=== PATIENT | female | born 1965 | race Caucasian/White ===

== ENCOUNTER 2017-11-26 15:58 | Inpatient (IN) ==
--- NOTE | 2017-11-26 18:41 | Emergency Department Note ---
Disposition Clinical Impression: HCAP (healthcare-associated pneumonia), Hypokalemia Disposition: Admitted As Inpatient Condition: Good General Adult HPI - General Chief complaint: ED Fever Stated complaint: "fever,n/v" Time Seen by Provider: 11/26/17 18:27 - History of Present Illness Pain Scale: 5 - Related Data Home Medications Medication Instructions Recorded Confirmed Exenatide Microspheres [Bydureon 2 mg SQ MO 08/22/17 08/22/17 Pen] Lisinopril [Zestril] 5 mg PO DAILY 08/22/17 08/22/17 Metformin HCl [Glucophage] 1,000 mg PO BID 08/22/17 08/22/17 Oxybutynin Chloride [Ditropan Xl] 10 mg PO DAILY 08/22/17 08/22/17 Topiramate 50 mg PO BID 08/22/17 08/22/17 Previous Rx's Medication Instructions Recorded HYDROcodone/Acet 5/325 mg [[place] 1 tab PO Q4H PRN 5 Days #15 tab 08/22/17 5-325 mg] Allergies Allergy/AdvReac Type Severity Reaction Status Date / Time acetaminophen AdvReac Gastrointestinal Verified 11/26/17 20:44 [From Tylenol-Codeine] Upset codeine AdvReac Gastrointestinal Verified 11/26/17 20:44 [From Tylenol-Codeine] Upset Penicillins AdvReac Gastrointestinal Verified 11/26/17 20:44 Upset Past Medical History - Past Medical History Psychiatric history: Reports: no psych history - Social History Smoking Status: Never smoker Alcohol use: Reports: none Drug use: Reports: none Course Vital Signs Temperature 99.9 F H 11/26/17 16:00 Pulse Rate 104 11/26/17 16:00 Respiratory Rate 18 11/26/17 16:00 Blood Pressure 129/83 11/26/17 16:00 O2 Sat by Pulse Oximetry 97 11/26/17 16:00 Temperature 99.9 F H 11/26/17 16:00 Pulse Rate 104 11/26/17 16:00 Respiratory Rate 18 11/26/17 16:00 Blood Pressure 129/83 11/26/17 16:00 O2 Sat by Pulse Oximetry 97 11/26/17 16:00 Oxygen Delivery Oxygen Delivery Room Air Medical Decision Making - Lab Data Result diagrams: 11/26/17 19:10 11/26/17 19:10 Lab Results 11/26/17 11/26/17 11/26/17 Range/Units 19:10 19:10 19:27 WBC 14.7 H (4.3-11.1) K/mcL RBC 4.19 (3.82-4.97) M/mcL Hgb 11.6 (11.5-15.4) g/dL Hct 34.8 L (35.3-44.9) % MCV 83.1 (83.0-100.0) fL MCH 27.7 L (28.0-33.3) pg MCHC 33.3 (31.6-35.5) g/dL RDW 13.3 (11.5-14.5) % Plt Count 195 (140-400) K/mcL MPV 10.4 (9.4-12.4) fL Immature Gran % 0.8 (0-4) % Seg Neutrophils % 84.9 % Lymphocytes % 8.2 % Monocytes % 5.9 % Eosinophils % 0.1 % Basophils % 0.1 % Neutrophils # 12.5 H (1.6-8.9) K/mcL Lymphocytes # 1.2 (0.6-4.6) K/mcL Monocytes # 0.9 (0.0-1.3) K/mcL Eosinophils # 0.0 (0.0-0.6) K/mcL Basophils # 0.0 (0.0-0.2) K/mcL Sodium 130 L (136-145) mEq/L Potassium 2.9 L (3.5-5.1) mEq/L Chloride 95 L (98-107) mEq/L Carbon Dioxide 23 (23-29) mEq/L BUN 11 (6-20) mg/dL Creatinine 0.81 (0.60-1.20) mg/dL Est GFR ( Amer) > 60 (> 60) Est GFR (Non-Af Amer) > 60 (> 60) BUN/Creatinine Ratio 14 (6-26) Glucose 287 H (70-105) mg/dL Calculated Osmolality 280 (280-300) Calcium 8.6 (8.6-10.3) mg/dL Total Bilirubin 0.4 (0.3-1.0) mg/dL AST 21 (13-39) Units/L ALT 21 (7-52) Units/L Alkaline Phosphatase 67 (34-104) Units/L Serum Total Protein 8.0 (6.4-8.9) g/dL Albumin 3.5 (3.5-5.7) g/dL Globulin 4.5 H (2.4-3.5) g/dL Albumin/Globulin Ratio 0.8 L (1.1-2.2) Lipase 16 (11-82) Units/L Urine Color Yellow (Yellow) Urine Clarity Cloudy A (Clear) Urine pH 5.5 (5.0-8.0) pH Units Ur Specific [place] > 1.030 H (1.010-1.025) Urine Protein >=300 H (Neg-Trace) mg/dL Urine Glucose (UA) >=1000 H (Normal) mg/dL Urine Ketones Trace H (Negative) mg/dL Urine Blood Moderate H (Negative) Urine Nitrite Negative (Negative) Urine Bilirubin Small H (Negative) Urine Urobilinogen Normal (Normal) mg/dL Ur Leukocyte Esterase Negative (Negative) Urine Microscopic RBC 0-3 (0-3) per hpf Urine Microscopic WBC 5-15 H (0-3) per hpf Ur Squamous Epith Cells Moderate H (None-Few) per lpf Urine Bacteria Many H (None-Few) per hpf Granular Casts Few H (None Seen) per lpf Ur Culture Indicated? NO (NO) Attestation Statement - Attestation Attestation: Resident Attestation: I examined this patient and my medical decision making was reviewed with the Resident Physician. I agree with the documented findings, disposition and treatment plan as described except to the extent set forth below. We independently had [id number] contact with the patient. Patient presents today for evaluation of fever, nausea, chills, body aches. Patient has had a cholecystectomy approximately 3 weeks ago where she stayed approximately 3 nights secondary to them deciding whether they wanted to take it out or not based off her overall symptoms. The patient does not have any specific focal abdominal tenderness. The patient does have a cough. Patient will be checked for infection in both the lungs abdomen and urine. No acute distress, awake alert and oriented 3, heart rate regular rhythm, lungs with rhonchi at the bases bilaterally, no significant lower extremity pitting edema CT scan does not show any intra-abdominal pathology, chest x-ray shows significant pneumonia to the left side, urinalysis without sign of infection. Patient has had greater than 2 days in the hospital within the last 3 months. HCAP coverage. Patient will require admission for IV antibiotics. Blood culture has been sent. Please see resident note for further details and disposition.
[2017-11-26] MEDS ORDERED: 0.9 % Sodium Chloride 1,000 ML IVC ONE (18:43)
[2017-11-26] MEDS ORDERED: Ondansetron 4 MG/2 ML VIAL IVP ONE (18:43)
--- NOTE | 2017-11-26 18:52 | Emergency Department Note ---
Disposition Clinical Impression: HCAP (healthcare-associated pneumonia) Fever Qualifiers: Fever type: unspecified Qualified Code(s): R50.9 - Fever, unspecified Disposition: Admitted As Inpatient Condition: Fair Referrals: Angelia Crawford CNP [Primary Care Provider] - Forms: ED Satisfaction Letter General Adult HPI - General Chief complaint: ED Fever Stated complaint: "fever,n/v" Time Seen by Provider: 11/26/17 18:27 Source: patient, family Mode of arrival: ambulatory Limitations: no limitations Nursing Notes Reviewed: Yes Vital Signs Reviewed: Yes - History of Present Illness HPI Narrative: 52-year-old female with significant past medical history of diabetes currently on metformin presenting to the emergency department with chief complaint of cough, fever and overall not feeling well. Patient states for the past 5-7 days she has not been feeling well. Went to an outside facility where they did a urine analysis and some lab work and sent her home. They diagnosed her with a viral upper respiratory infection. Patient states she did have a cholecystectomy approximately 3-4 weeks ago at an outside facility. At that time she stayed in the hospital for approximately 3 days. Patient states she had multiple episodes of nonbloody nonbilious vomiting a few days ago but that has now resolved. Now only having nausea. Denies any chest pain. Denies any history of asthma or COPD. Denies any other sick contacts. Pain Scale: 5 - Related Data Home Medications Medication Instructions Recorded Confirmed Exenatide Microspheres [Bydureon 2 mg SQ MO 08/22/17 08/22/17 Pen] Lisinopril [Zestril] 5 mg PO DAILY 08/22/17 08/22/17 Metformin HCl [Glucophage] 1,000 mg PO BID 08/22/17 08/22/17 Oxybutynin Chloride [Ditropan Xl] 10 mg PO DAILY 08/22/17 08/22/17 Topiramate 50 mg PO BID 08/22/17 08/22/17 Previous Rx's Medication Instructions Recorded HYDROcodone/Acet 5/325 mg [[place] 1 tab PO Q4H PRN 5 Days #15 tab 08/22/17 5-325 mg] Allergies Allergy/AdvReac Type Severity Reaction Status Date / Time acetaminophen AdvReac Gastrointestinal Verified 11/26/17 20:44 [From Tylenol-Codeine] Upset codeine AdvReac Gastrointestinal Verified 11/26/17 20:44 [From Tylenol-Codeine] Upset Penicillins AdvReac Gastrointestinal Verified 11/26/17 20:44 Upset All systems ED: reviewed and negative except as stated. Constitutional: Reports: fever, chills Eyes: Reports: as per HPI ENT ED: Reports: as per HPI Cardiovascular: Denies: chest pain, palpitations Respiratory: Reports: cough, dyspnea. Denies: hemoptysis, stridor Gastrointestinal: Reports: nausea, vomiting. Denies: abdominal pain Genitourinary: Reports: as per HPI Musculoskeletal: Reports: as per HPI Integumentary: Reports: as per HPI Neurological: Denies: numbness, paresthesias Psychiatric: Reports: as per HPI Endocrine: Reports: as per HPI Hematological/Lymphatic: Reports: as per HPI Allergic/Immunologic: Reports: as per HPI Past Medical History - Past Medical History Attestation: Yes The following information was validated with the patient. Psychiatric history: Reports: no psych history - Social History Smoking Status: Never smoker Alcohol use: Reports: none Drug use: Reports: none Physical Exam - General Limitations: no limitations General appearance: alert, in no apparent distress - Head Head exam: atraumatic, normocephalic, normal inspection - Eye Eye exam: Present: normal appearance. Absent: scleral icterus, conjunctival injection - ENT ENT exam: mucous membranes dry - Neck Neck exam: Present: normal inspection, full ROM. Absent: tenderness, meningismus - Chest Chest inspection: Present: normal inspection, symmetric chest wall rise. Absent : tenderness, rash - Respiratory Respiratory exam: Present: other (Coarse breath sounds throughout). Absent: respiratory distress, stridor - Cardiovascular Cardiovascular exam: Present: normal rhythm, tachycardia, normal heart sounds - Abdominal Exam Abdominal exam: Present: soft, Non-Tender, other (3 well healing surgical incision sites noted to the right side of the abdomen). Absent: distention, guarding, rebound - Extremities Exam Extremities exam: Present: normal inspection, full ROM - Neurological Exam Neurological exam: Present: alert, oriented X3 - Psychiatric Psychiatric exam: Present: normal affect, normal mood - Skin Skin exam: Present: warm Course Course Narrative: 52-year-old female presenting with cough, fever and overall not feeling well. Patient had cholecystectomy 3-4 weeks ago. Patient's physical exam shows a soft abdomen and coarse breath sounds throughout. She is mildly tachycardic in the low 100s. Otherwise hemodynamically stable. She is alert and oriented 3. At this time will work her up with concern for sepsis. We will obtain basic laboratory analysis, chest x-ray and a CT of the abdomen and pelvis. Disposition pending results. Patient agrees with this plan - Reevaluation(s) Reevaluation #1: Patient's laboratory analysis shows leukocytosis at 14.7 and hypokalemia at 2.9. We will replete her with [address] of abdomen and pelvis does not show any acute abnormality. Chest x-ray does show large left sided pneumonia. Due to patient's recent hospitalization for her cholecystectomy we will treat her as an age. Patient is allergic to penicillin. We will provide her with cefepime, Levaquin and vancomycin. Patient remains alert and oriented 3 in the room with stable vital signs. We will plan to admit her for further treatment. Patient agrees this plan. I spoke with the hospitalist infection prevention coordinator Dr. Balbuena who agrees to accept the patient at this time. Vital Signs Temperature 99.9 F H 11/26/17 16:00 Pulse Rate 104 11/26/17 16:00 Respiratory Rate 18 11/26/17 16:00 Blood Pressure 129/83 11/26/17 16:00 O2 Sat by Pulse Oximetry 97 11/26/17 16:00 Temperature 99.9 F H 11/26/17 16:00 Pulse Rate 104 11/26/17 16:00 Respiratory Rate 18 11/26/17 16:00 Blood Pressure 129/83 11/26/17 16:00 O2 Sat by Pulse Oximetry 97 11/26/17 16:00 Oxygen Delivery Oxygen Delivery Room Air Medical Decision Making - Lab Data Result diagrams: 11/26/17 19:10 11/26/17 19:10 Lab Results 11/26/17 11/26/17 11/26/17 Range/Units 19:10 19:10 19:27 WBC 14.7 H (4.3-11.1) K/mcL RBC 4.19 (3.82-4.97) M/mcL Hgb 11.6 (11.5-15.4) g/dL Hct 34.8 L (35.3-44.9) % MCV 83.1 (83.0-100.0) fL MCH 27.7 L (28.0-33.3) pg MCHC 33.3 (31.6-35.5) g/dL RDW 13.3 (11.5-14.5) % Plt Count 195 (140-400) K/mcL MPV 10.4 (9.4-12.4) fL Immature Gran % 0.8 (0-4) % Seg Neutrophils % 84.9 % Lymphocytes % 8.2 % Monocytes % 5.9 % Eosinophils % 0.1 % Basophils % 0.1 % Neutrophils # 12.5 H (1.6-8.9) K/mcL Lymphocytes # 1.2 (0.6-4.6) K/mcL Monocytes # 0.9 (0.0-1.3) K/mcL Eosinophils # 0.0 (0.0-0.6) K/mcL Basophils # 0.0 (0.0-0.2) K/mcL Sodium 130 L (136-145) mEq/L Potassium 2.9 L (3.5-5.1) mEq/L Chloride 95 L (98-107) mEq/L Carbon Dioxide 23 (23-29) mEq/L BUN 11 (6-20) mg/dL Creatinine 0.81 (0.60-1.20) mg/dL Est GFR ( Amer) > 60 (> 60) Est GFR (Non-Af Amer) > 60 (> 60) BUN/Creatinine Ratio 14 (6-26) Glucose 287 H (70-105) mg/dL Calculated Osmolality 280 (280-300) Calcium 8.6 (8.6-10.3) mg/dL Total Bilirubin 0.4 (0.3-1.0) mg/dL AST 21 (13-39) Units/L ALT 21 (7-52) Units/L Alkaline Phosphatase 67 (34-104) Units/L Serum Total Protein 8.0 (6.4-8.9) g/dL Albumin 3.5 (3.5-5.7) g/dL Globulin 4.5 H (2.4-3.5) g/dL Albumin/Globulin Ratio 0.8 L (1.1-2.2) Lipase 16 (11-82) Units/L Urine Color Yellow (Yellow) Urine Clarity Cloudy A (Clear) Urine pH 5.5 (5.0-8.0) pH Units Ur Specific [place] > 1.030 H (1.010-1.025) Urine Protein >=300 H (Neg-Trace) mg/dL Urine Glucose (UA) >=1000 H (Normal) mg/dL Urine Ketones Trace H (Negative) mg/dL Urine Blood Moderate H (Negative) Urine Nitrite Negative (Negative) Urine Bilirubin Small H (Negative) Urine Urobilinogen Normal (Normal) mg/dL Ur Leukocyte Esterase Negative (Negative) Urine Microscopic RBC 0-3 (0-3) per hpf Urine Microscopic WBC 5-15 H (0-3) per hpf Ur Squamous Epith Cells Moderate H (None-Few) per lpf Urine Bacteria Many H (None-Few) per hpf Granular Casts Few H (None Seen) per lpf Ur Culture Indicated? NO (NO)
[2017-11-26 19:46] LABS: Basophils % 0.1 %; Eosinophils % 0.1 %; Hematocrit 34.8 % (35.3-44.9); Hemoglobin 11.6 g/dL (11.5-15.4); Immature Granulocytes % 0.8 % (0-4); Lymphocytes # 1.2 K/mcL (0.6-4.6); Lymphocytes % 8.2 %; Mean Corpuscular HGB Conc 33.3 g/dL (31.6-35.5); Mean Corpuscular Hemoglobin 27.7 pg (28.0-33.3); Mean Corpuscular Volume 83.1 fL (83.0-100.0); Mean Platelet Volume 10.4 fL (9.4-12.4); Monocytes # 0.9 K/mcL (0.0-1.3); Monocytes % 5.9 %; Neutrophils # 12.5 K/mcL (1.6-8.9); Platelet Count 195 K/mcL (140-400); Red Blood Count 4.19 M/mcL (3.82-4.97); Red Cell Distribution Width 13.3 % (11.5-14.5); Segmented Neutrophils % 84.9 %
[2017-11-26 19:49] LABS: Bilirubin,Urine Small (Negative); Blood,Urine Moderate (Negative); Clarity,Urine Cloudy (Clear); Color,Urine Yellow (Yellow); Glucose,Urine (UA) >=1000 mg/dL (Normal); Ketones,Urine Trace mg/dL (Negative); Leukocyte Esterase,Urine Negative (Negative); Nitrite,Urine Negative (Negative); PH,Urine 5.5 pH Units (5.0-8.0); Protein,Urine >=300 mg/dL (Neg-Trace); Specific Gravity,Urine > 1.030 (1.010-1.025); Urobilinogen,Urine Normal (Normal)
[2017-11-26 20:04] LABS: Granular Casts,Urine Few per lpf (None Seen)
[2017-11-26 20:05] LABS: Bacteria,Urine Many per hpf (None-Few); RBC,Urine 0-3 per hpf (0-3); Squamous Epithelial Cell,Urine Moderate per lpf (None-Few)
[2017-11-26 20:06] LABS: Alanine Aminotransferase 21 Units/L (7-52); Albumin 3.5 g/dL (3.5-5.7); Albumin/Globulin Ratio 0.8 (1.1-2.2); Alkaline Phosphatase 67 Units/L (34-104); Aspartate Amino Transferase 21 Units/L (13-39); BUN/Creatinine Ratio 14 (6-26); Bilirubin,Total 0.4 mg/dL (0.3-1.0); Blood Urea Nitrogen 11 mg/dL (6-20); Calcium 8.6 mg/dL (8.6-10.3); Carbon Dioxide 23 mEq/L (23-29); Chloride 95 mEq/L (98-107); Globulin 4.5 g/dL (2.4-3.5); Glucose 287 mg/dL (70-105); Lipase 16 Units/L (11-82); Osmolality,Calculated 280 (280-300); Potassium 2.9 mEq/L (3.5-5.1); Sodium 130 mEq/L (136-145); eGFR For Non-African Americans > 60 (> 60)
[2017-11-26] MEDS ORDERED: Potassium Chloride Elixir 20 MEQ/15 ML UDC PO ONE (20:08)
[2017-11-26] MEDS ORDERED: Vancomycin 1,750 MG in 0.9 % Sodium Chloride 250 ML IVPB ONE (20:37)
[2017-11-26] MEDS ORDERED: Levofloxacin 750 MG/150 ML 750 MG/150 ML BAG IVPB ONE (20:37)
[2017-11-26] MEDS ORDERED: Piperacillin/Tazobactam 3.375 GM in 0.9 % Sodium Chloride Mini Bag 100 ML IVPB ONE (20:37)
[2017-11-26] MEDS ORDERED: Azithromycin 500 MG in D5% in Water 250 ML IVPB ONE (20:39)
[2017-11-26] MEDS ORDERED: Cefepime HCl 2,000 MG in 0.9 % Sodium Chloride Mini Bag 100 ML IVPB STA (20:40)
[2017-11-26] MEDS ORDERED: Dextrose Gel 15 GM/37.5 ML TUBE PO PRN ×2 (21:03)
[2017-11-26] MEDS: Topiramate 25 MG TABLET PO SCH (22:00)
[2017-11-26] MEDS ORDERED: Ibuprofen 600 MG TABLET PO PRN (22:20)
--- NOTE | 2017-11-26 22:30 | Internal Med History&Physical ---
Date of Encounter: 11/26/17 Time of Encounter: 22:25 Internal Medicine - H&P: HPI Chief complaint: cough Admitted From: Home Plans for Post Hospital Care: Home History of present illness: Samara Dorsey is a 52 year old woman with diabetes who was admitted to [facility] for 3 days about 3 weeks ago where she underwent a laparoscopic cholecystectomy without complications. She presents to our ER now with the complaint of cough, fever and generalized malaise for the past week. She says she was seen at [place] 3 days ago and was told she had dehydration and URI. She has not improved since then, today now feeling feverish and having chills. She states that her cough is increasingly more productive and bothersome with associated chest discomfort. She has also started to feel nauseated, having a few episodes on non-bilious vomiting. She states that no one else is sick at home. She denies sore throat, inner ear pain/tingling, rhinorrhea. On arrival to the ER she was clinically stable and breathing well on room air. Review of her vitals show a TMax of 100.6F. She was also tachycardic at 104 but never hypotensive. Lactate obtained was wnl however WBC was elevated at 14.7. Other remarkable labs include Na 130, K 2.9. CXR reviewed independently by me shows extensive left lung airspace opacification consistent with pneumonia. Blood cultures were obtained and she was given vancomycin and cefepime given her recent healthcare contact. She is now admitted for further observation. Past Med Surg Social Fam HX - Past Medical History Medical history: diabetes, hyperlipidemia Psychiatric history: no psych history - Past Surgical History Surgical History: , cholecystectomy - Social History Smoking Status: Never smoker Smokeless Tobacco Status: No Alcohol use: none Drug use: none Internal Medicine - H&P: Meds Exenatide Microspheres [Bydureon Pen] 2 mg SQ MO 08/22/17 [History] HYDROcodone/Acet 5/325 mg [[place] 5-325 mg] 1 tab PO Q4H PRN 5 Days #15 tab 08/22 [Rx] Lisinopril [Zestril] 5 mg PO DAILY 08/22/17 [History] Metformin HCl [Glucophage] 1,000 mg PO BID 08/22/17 [History] Oxybutynin Chloride [Ditropan Xl] 10 mg PO DAILY 08/22/17 [History] Topiramate 50 mg PO BID 08/22/17 [History] 3 Allergy/AdvReac Type Severity Reaction Status Date / Time acetaminophen AdvReac Gastrointestinal Verified 11/26/17 20:44 [From Tylenol-Codeine] Upset codeine AdvReac Gastrointestinal Verified 11/26/17 20:44 [From Tylenol-Codeine] Upset Penicillins AdvReac Gastrointestinal Verified 11/26/17 20:44 Upset All Systems PM: A 10-system review of systems was performed and is negative for pertinent findings except as documented above in the HPI. - Constitutional Vitals: Temp Pulse Resp BP Pulse Ox 100.6 F H 94 15 123/73 97 11/26/17 21:29 11/26/17 21:29 11/26/17 21:29 11/26/17 21:29 11/26/17 21:29 Exam: Vitals: Reviewed General: Obese, NAD Skin: Warm and supple HEENT: Moist mucous membranes. No conjunctivae pallor. Poor dentition. Neck: No lymphadenopathy. No JVD. No carotid bruits. No palpable thyroid. Chest: Coughs with deep breaths. Diminished breath sounds with fine rales in the lower left lung field. Heart: Normal S1 & S2; rhythmic. No rubs or murmurs. Abdomen: Non-distended, soft and non-tender to palpation. No peritoneal reaction. Extremities: No clubbing, cyanosis or edema. No calf tenderness. Normal distal pulses. Neurological: Awake, alert and oriented to person, place and time. No focal deficits. Psych: Affect appropriate. Internal Med - H&P Results - Labs CBC & Chem 7: 11/26/17 19:10 11/26/17 19:10 - Assessment and plan (1) Sepsis Current Visit: Yes Status: Acute Assessment and plan: Secondary to pneumonia as evidenced by fever, tachycardia and leukocytosis with positive respiratory symptoms and a lobar consolidation on x-ray. Although her CURB/PSI numbers are not elevated, being a diabetic with recent hospitalization and extensive disease on x-ray warrants inpatient treatment for now. Will check lactate level. Fluid resuscitation. Obtain cultures and abx as directed below. Qualifiers: Sepsis type: sepsis due to unspecified organism Qualified Code(s): A41.9 - Sepsis, unspecified organism (2) HCAP (healthcare-associated pneumonia) Current Visit: Yes Status: Acute Assessment and plan: Based on her 3 day hospitalization 3 weeks ago part of which entailed intubation for surgery. This prompts the need for broad spectrum antimicrobials targeting MDR organisms. The presence of GI symptoms and hyponatremia in addition to hospital stay gives concern for Legionella therefore this needs to be ruled out. Thus will discontinue cefepime/piptazo as they do not aequately cover this organism or have atypical coverage. Will start levofloxacin 750mg as they have the same degree of coverage of those agents in addition to covering atypicals and Legionella. Continue vancomycin for now. Will obtain MRSA nasal swab; if negative it can be discontinued. Urine Strep Ag and sputum culture also to be collected. Rule out underlying influenza with Ag swab. F/u blood cultures. (3) Electrolyte and fluid disorder Current Visit: Yes Status: Acute Assessment and plan: As evidenced by hyponatremia and hypokalemia. Possibly associated with the GI losses she has been reporting coupled with poor oral intake. 40mEq of KCL PO has been given. Will continue with KCL in IV NS to run over the next 16 hours. Goal K of 4.0. Check Mg. (4) Diabetes Current Visit: Yes Status: Chronic Assessment and plan: Will place on insulin sliding scale for now. Qualifiers: Diabetes mellitus type: type 2 Diabetes mellitus intermodal dispatcher insulin use: without [facility] use Diabetes mellitus complication status: with unspecified complications Qualified Code(s): E11.8 - Type 2 diabetes mellitus with unspecified complications (5) DVT prophylaxis Current Visit: Yes Status: Acute Assessment and plan: SubQ heparin indicated. - Time Spent With Patient Total time spent is greater than 50% in coordination of care (as documented) at patient's floor/unit and/or counseling patient: Greater than 35 minutes
[2017-11-26] MEDS: *HR* Heparin 5,000 UNIT/ML VIAL SQ SCH (23:14)
[2017-11-26] MEDS: *HR* HYDROcodone/Acet 5/325 mg TABLET PO PRN (23:46)
[2017-11-26] MEDS: 0.9 % Sodium Chloride w KCl 40 MEQ/1,000 ML MLS IVC SCH (23:59)
[2017-11-27 06:09] LABS: Basophils % 0.2 %; Eosinophils % 0.2 %; Hematocrit 32.1 % (35.3-44.9); Hemoglobin 10.6 g/dL (11.5-15.4); Immature Granulocytes % 0.8 % (0-4); Lymphocytes # 1.4 K/mcL (0.6-4.6); Lymphocytes % 10.3 %; Mean Corpuscular Hemoglobin 27.8 pg (28.0-33.3); Mean Corpuscular Volume 84.3 fL (83.0-100.0); Mean Platelet Volume 10.6 fL (9.4-12.4); Monocytes # 0.9 K/mcL (0.0-1.3); Neutrophils # 10.7 K/mcL (1.6-8.9); Platelet Count 163 K/mcL (140-400); Red Blood Count 3.81 M/mcL (3.82-4.97); Red Cell Distribution Width 13.7 % (11.5-14.5); Segmented Neutrophils % 81.5 %
[2017-11-27 06:27] LABS: BUN/Creatinine Ratio 15 (6-26); Blood Urea Nitrogen 11 mg/dL (6-20); Calcium 7.8 mg/dL (8.6-10.3); Carbon Dioxide 20 mEq/L (23-29); Chloride 102 mEq/L (98-107); Glucose 286 mg/dL (70-105); Osmolality,Calculated 282 (280-300); Potassium 3.6 mEq/L (3.5-5.1); Sodium 131 mEq/L (136-145); eGFR For Non-African Americans > 60 (> 60)
[2017-11-27] MEDS ORDERED: Aminoglycoside Consult 1 EACH MC ONE (07:18)
[2017-11-27] MEDS: Topiramate 25 MG TABLET PO SCH ×2 (08:46→20:44)
[2017-11-27] MEDS: Levofloxacin 750 MG/150 ML 750 MG/150 ML BAG IVPB SCH (08:49)
[2017-11-27] MEDS: Insulin LISPRO 300 UNITS/3 ML VIAL SQ SCH ×4 (08:54→20:44)
[2017-11-27] MEDS: *HR* Heparin 5,000 UNIT/ML VIAL SQ SCH ×2 (08:56→17:06)
[2017-11-27] MEDS ORDERED: Vancomycin 1,750 MG in 0.9 % Sodium Chloride 250 ML IVPB SCH (09:00)
[2017-11-27] MEDS: 0.9 % Sodium Chloride w KCl 40 MEQ/1,000 ML MLS IVC SCH (09:23)
[2017-11-27 10:45] LABS: Magnesium 1.4 mg/dL (1.6-2.6)
--- NOTE | 2017-11-27 14:45 | Internal Med Progress Note ---
<Cesilia Blanco - Last Filed: 11/27/17 15:58> Hospitalist Progress Note - Encounter Date of Encounter: 11/27/17 Time of Encounter: 10:32 - Subjective Interval History: Samara Dorsey is a 52 YOF with history of DM and a recent 3 day admission to [place] 3 weeks ago, s/p cholecystectomy. She presented to [place] within the past week complaining of cough, fever, and generalized weakness and was diagnosed with a URI and dehydration. Her symptoms continued to worsen with continued fever, chills, and a couple episodes of non-bilious vomiting. CXR on admission showed extensive left perihilar opacificaion. She tested positive for Legionella urine antigen and was stated on Levaquin and Vanc. Patient states that her breathing is improved today. She denies any chest pain, palpitations, lightheadedness, or dizziness, fever, or chills. She admits to a non-productive cough and decreased appetite. - Exam Vitals: Temp Pulse Resp BP Pulse Ox 98.5 F 89 15 106/69 95 11/27/17 10:42 11/27/17 10:42 11/27/17 10:42 11/27/17 10:42 11/27/17 10:42 Exam: Gen: Lying comfortably in bed, NAD Skin: Warm and supple Chest: Diminished breath sounds with fine rales in the lower left lung field. Clear breath sounds in the right lung ellison. Heart: RRR. S1 and S2 normal, no murmurs Abdomen: Non-distended, soft and non-tender to palpation. Extremities: No clubbing, cyanosis or edema. Neurological: Awake, alert and oriented to person, place and time. No focal deficits. Psych: Alert and oriented, appears uneducated with difficulty understanding - Assessment and Plan (1) HCAP (healthcare-associated pneumonia) Current Visit: Yes Status: Acute Assessment and Plan: Due to patients recent hospitalization, likely hosptial acquired pnemonia. Patient had GI symptoms, hypokalemia (2.9) and hyponatremia (130) on presentation, improved today. Urine Antigen positive or Legionella MRSA nasal swab negative Blood cultures pending Continue Levaquin Discontinued Vancomycin due to negative MRSA swab Hyponatremia and hypokalemia resolved, will continue to monitor (2) Diabetes Current Visit: Yes Status: Chronic Assessment and Plan: A1C 7.7. on 08/18/17 Holding home Metformin Glucose 240s-290s today Continue low dose SSI Added 10u Levemir QHS Will continue to monitor (3) Hyponatremia Current Visit: Yes Status: Acute Assessment and Plan: 130 on admission, likely secondary to Legionella PNA Na 131 today Patient asymptomatic Will continue to monitor (4) Hypokalemia Current Visit: Yes Status: Resolved Assessment and Plan: 2.9 on admission, now 3.6 after KCL 40mEq x2 (5) Hypertension Current Visit: Yes Status: Chronic Assessment and Plan: Chronic. Stable. Continue home Lisinopril DVT Prophylaxis: SQ Heparin - Time Spent with Patient Total time spent is greater than 50% in coordination of care (as documented) at patient's floor/unit and/or counseling patient: 25 - 35 minutes Plan of Care Discussed with: patient Internal Medicine: Result - Labs CBC & Chem 7: 11/27/17 05:44 11/27/17 05:44 Labs: Short CBC 11/27/17 Range/Units 05:44 WBC 13.2 H (4.3-11.1) K/mcL Hgb 10.6 L (11.5-15.4) g/dL Hct 32.1 L (35.3-44.9) % Plt Count 163 (140-400) K/mcL Neutrophils # 10.7 H (1.6-8.9) K/mcL BMP 11/27/17 05:44 Sodium 131 L Potassium 3.6 Chloride 102 Carbon Dioxide 20 L BUN 11 Creatinine 0.74 Glucose 286 H Calcium 7.8 L Consult Discharge Plan - Plan Referrals: Angelia Crawford, HEALTH PROGRAM SPECIALIST [Primary Care Provider] - <Sheila Herdeia - Last Filed: 11/27/17 16:41> Hospitalist Progress Note - Encounter Date of Encounter: 11/27/17 - Exam Vitals: Temp Pulse Resp BP Pulse Ox 98.9 F 82 16 121/73 96 11/27/17 14:52 11/27/17 14:52 11/27/17 14:52 11/27/17 14:52 11/27/17 14:52 - Assessment and Plan (1) HCAP (healthcare-associated pneumonia) Current Visit: Yes Status: Acute (2) Electrolyte and fluid disorder Current Visit: Yes Status: Acute (3) Sepsis Current Visit: Yes Status: Acute (4) Diabetes Current Visit: Yes Status: Chronic (5) DVT prophylaxis Current Visit: Yes Status: Acute - Time Spent with Patient Total time spent is greater than 50% in coordination of care (as documented) at patient's floor/unit and/or counseling patient: Internal Medicine: Result - Labs CBC & Chem 7: 11/27/17 05:44 11/27/17 05:44 Labs: Short CBC 11/27/17 Range/Units 05:44 WBC 13.2 H (4.3-11.1) K/mcL Hgb 10.6 L (11.5-15.4) g/dL Hct 32.1 L (35.3-44.9) % Plt Count 163 (140-400) K/mcL Neutrophils # 10.7 H (1.6-8.9) K/mcL BMP 11/27/17 05:44 Sodium 131 L Potassium 3.6 Chloride 102 Carbon Dioxide 20 L BUN 11 Creatinine 0.74 Glucose 286 H Calcium 7.8 L - Attending Attestation I have seen and examined this pt independently. I have discussed with resident physician Dr Blanco regarding the management plan. Agree with the documentation. <Cesilia Blanco - Last Filed: 11/27/17 15:58> (2) Diabetes Qualifiers: Diabetes mellitus type: type 2 Diabetes mellitus field ring assembler insulin use: without field ring assembler use Diabetes mellitus complication status: with unspecified complications Qualified Code(s): E11.8 - Type 2 diabetes mellitus with unspecified complications <Sheila Heredia - Last Filed: 11/27/17 16:41> (3) Sepsis Qualifiers: Sepsis type: sepsis due to unspecified organism Qualified Code(s): A41.9 - Sepsis, unspecified organism (4) Diabetes Qualifiers: Diabetes mellitus type: type 2 Diabetes mellitus field ring assembler insulin use: without halfway use Diabetes mellitus complication status: with unspecified complications Qualified Code(s): E11.8 - Type 2 diabetes mellitus with unspecified complications
[2017-11-27] MEDS: Insulin DETEMIR 100 UNIT/ML X5UNITS SQ SCH (20:44)
[2017-11-28] MEDS: *HR* HYDROcodone/Acet 5/325 mg TABLET PO PRN ×3 (00:47→23:59)
[2017-11-28] MEDS: *HR* Heparin 5,000 UNIT/ML VIAL SQ SCH ×4 (00:48→23:59)
[2017-11-28 05:29] LABS: Basophils % 0.3 %; Eosinophils # 0.2 K/mcL (0.0-0.6); Hematocrit 31.7 % (35.3-44.9); Hemoglobin 10.2 g/dL (11.5-15.4); Immature Granulocytes % 1.1 % (0-4); Lymphocytes % 9.4 %; Mean Corpuscular HGB Conc 32.2 g/dL (31.6-35.5); Mean Corpuscular Hemoglobin 27.7 pg (28.0-33.3); Mean Corpuscular Volume 86.1 fL (83.0-100.0); Mean Platelet Volume 11.3 fL (9.4-12.4); Monocytes # 0.5 K/mcL (0.0-1.3); Monocytes % 4.7 %; Neutrophils # 8.9 K/mcL (1.6-8.9); Platelet Count 167 K/mcL (140-400); Red Blood Count 3.68 M/mcL (3.82-4.97); Red Cell Distribution Width 14.1 % (11.5-14.5); Segmented Neutrophils % 82.5 %
[2017-11-28 05:51] LABS: BUN/Creatinine Ratio 18 (6-26); Blood Urea Nitrogen 11 mg/dL (6-20); Calcium 8.6 mg/dL (8.6-10.3); Carbon Dioxide 17 mEq/L (23-29); Chloride 105 mEq/L (98-107); Glucose 156 mg/dL (70-105); Osmolality,Calculated 277 (280-300); Potassium 3.4 mEq/L (3.5-5.1); Sodium 132 mEq/L (136-145); eGFR For Non-African Americans > 60 (> 60)
[2017-11-28 08:20] LABS: Magnesium 1.6 mg/dL (1.6-2.6)
[2017-11-28] MEDS: Levofloxacin 750 MG/150 ML 750 MG/150 ML BAG IVPB SCH (08:20)
[2017-11-28] MEDS: Insulin LISPRO 300 UNITS/3 ML VIAL SQ SCH ×4 (08:21→21:38)
[2017-11-28] MEDS: Topiramate 25 MG TABLET PO SCH ×2 (08:21→21:37)
--- NOTE | 2017-11-28 11:59 | Internal Med Progress Note ---
<Cesilia Blanco - Last Filed: 11/28/17 13:44> Hospitalist Progress Note - Encounter Date of Encounter: 11/28/17 Time of Encounter: 09:17 - Subjective Interval History: Samara Dorsey is a 52 YOF with history of DM and a recent 3 day admission to [place] 3 weeks ago, s/p cholecystectomy. She presented to [place] within the past week complaining of cough, fever, and generalized weakness and was diagnosed with a URI and dehydration. Her symptoms continued to worsen with continued fever, chills, and a couple episodes of non-bilious vomiting. CXR on admission showed extensive left perihilar opacificaion. WBC was 14.7 on admission and she tested positive for Legionella urine antigen. Patient states that she continues to feel better with the exception of a mildly productive cough. She also states that overnight she felt hot and broke out in a sweat. Her appetite is slightly improved today. She denies any chest pain, palpitations, lightheadedness, or dizziness. - Exam Vitals: Temp Pulse Resp BP Pulse Ox 97.9 F 79 17 114/78 94 11/28/17 10:54 11/28/17 10:54 11/28/17 10:54 11/28/17 10:54 11/28/17 10:54 Exam: Gen: Lying comfortably in bed, NAD Skin: Warm and supple Chest: Diminished breath sounds with fine rales in the lower left lung field. Clear breath sounds in the right lung ellison. Heart: RRR. S1 and S2 normal, no murmurs Abdomen: Non-distended, soft and non-tender to palpation. Extremities: No clubbing, cyanosis or edema. Neurological: Awake, alert and oriented to person, place and time. No focal deficits. - Assessment and Plan (1) Legionella pneumonia Current Visit: Yes Status: Acute Assessment and Plan: Due to patients recent hospitalization, likely hosptial acquired pnemonia. Patient's breathing is improved, however she complains of a mildly productive cough and sweats overnight WBC 14.7 --> 10.8 today hypokalemia 2.9 --> 3.4 today hyponatremia 130 --> 132 today CXR -Extensive left perihilar airspace opacification most consistent with pneumonia. Urine Antigen positive or Legionella MRSA nasal swab negative Blood cultures pending Continue Levaquin (day 2) Encouraged mobilization Will transition to oral Levaquin tomorrow with possible discharge Patient will need follow up with PCP (2) Sepsis Current Visit: Yes Status: Resolved Assessment and Plan: Resolved. Likely secondary to HAP Presented with fever, tachycardia, and leukocytosis with respiratory symptoms and lobar consolidation on CXR Diabetic with recent hospitalization WBC 14.7 --> 10.8 today CXR - Extensive left perihilar airspace opacification most consistent with pneumonia. Lactic Acid 1.5 Vitals stable (3) Diabetes Current Visit: Yes Status: Chronic Assessment and Plan: A1C 7.7. on 08/18/17 Holding home Metformin Glucose 143 today Continue low dose SSI Continue 10u Levemir QHS Will continue to monitor (4) Hyponatremia Current Visit: Yes Status: Acute Assessment and Plan: 130 on admission, likely secondary to Legionella PNA Na 132 today Patient asymptomatic Will continue to monitor (5) Hypokalemia Current Visit: Yes Status: Resolved Assessment and Plan: 2.9 on admission, 3.4 today Will continue to monitor and replace PRN (6) Hypertension Current Visit: Yes Status: Chronic Assessment and Plan: Chronic. Stable. Continue home Lisinopril DVT Prophylaxis: SQ Heparin - Time Spent with Patient Total time spent is greater than 50% in coordination of care (as documented) at patient's floor/unit and/or counseling patient: less than 15 minutes Plan of Care Discussed with: patient Internal Medicine: Result - Labs CBC & Chem 7: 11/28/17 04:15 11/28/17 04:15 Labs: Short CBC 11/28/17 Range/Units 04:15 WBC 10.8 (4.3-11.1) K/mcL Hgb 10.2 L (11.5-15.4) g/dL Hct 31.7 L (35.3-44.9) % Plt Count 167 (140-400) K/mcL Neutrophils # 8.9 (1.6-8.9) K/mcL BMP 11/28/17 04:15 Sodium 132 L Potassium 3.4 L Chloride 105 Carbon Dioxide 17 L BUN 11 Creatinine 0.60 Glucose 156 H Calcium 8.6 Consult Discharge Plan - Plan Referrals: Angelia Crawford, TRAINING MGR [Primary Care Provider] - <Jie Hassan - Last Filed: 11/28/17 16:31> Hospitalist Progress Note - Encounter Date of Encounter: 11/28/17 - Exam Vitals: Temp Pulse Resp BP Pulse Ox 98.3 F 78 15 97/60 96 11/28/17 14:49 11/28/17 14:49 11/28/17 14:49 11/28/17 14:49 11/28/17 14:49 - Assessment and Plan (1) HCAP (healthcare-associated pneumonia) Current Visit: Yes Status: Acute (2) Electrolyte and fluid disorder Current Visit: Yes Status: Acute (3) Sepsis Current Visit: Yes Status: Resolved (4) Diabetes Current Visit: Yes Status: Chronic (5) DVT prophylaxis Current Visit: Yes Status: Acute - Time Spent with Patient Total time spent is greater than 50% in coordination of care (as documented) at patient's floor/unit and/or counseling patient: Internal Medicine: Result - Labs CBC & Chem 7: 11/28/17 04:15 11/28/17 04:15 Labs: Short CBC 11/28/17 Range/Units 04:15 WBC 10.8 (4.3-11.1) K/mcL Hgb 10.2 L (11.5-15.4) g/dL Hct 31.7 L (35.3-44.9) % Plt Count 167 (140-400) K/mcL Neutrophils # 8.9 (1.6-8.9) K/mcL BMP 11/28/17 04:15 Sodium 132 L Potassium 3.4 L Chloride 105 Carbon Dioxide 17 L BUN 11 Creatinine 0.60 Glucose 156 H Calcium 8.6 - Attending Attestation I examined this patient and my medical decision-making was reviewed with the Resident Physician. I agree with the documented findings, disposition and treatment plan as described except to the extent set forth below/addl details s below Ms Dorsey was admitted with sepsis 2/2 legionella pneumonia. Pt independently seen and examined Awake, cont cough with yellow sputum, denies sob, wheezing. Ambulating to bathroom and no sig dyspnea. Denies fevers, chills. gen- alert, awake,appears stated age cv- reg rate and rhythm, normal s1,s2, no murmurs appreciated lungs- ctabl, no wheezing, rhonchi or crackles, diminished left posterior breath sounds abd- soft, non tender, non distended, + bs neuro- AAOx3, CN grossly intact, no focal deficits Sepsis 2/2 pna, resolved Legionella pna- cont levaquin, bl cxs ngtd, encourage increased activity, o2 sats stable on room air Hyponatremia likely 2/2 legionella , Sodium level increased to 132, without cognitive deficits Hypokalemia- cont oral repletion, mag wnl <Cesilia Blanco - Last Filed: 11/28/17 13:44> (2) Sepsis Qualifiers: Sepsis type: sepsis due to unspecified organism Qualified Code(s): A41.9 - Sepsis, unspecified organism (3) Diabetes Qualifiers: Diabetes mellitus type: type 2 Diabetes mellitus jail insulin use: without jail use Diabetes mellitus complication status: with unspecified complications Qualified Code(s): E11.8 - Type 2 diabetes mellitus with unspecified complications <Jie Hassan M - Last Filed: 11/28/17 16:31> (3) Sepsis Qualifiers: Sepsis type: sepsis due to unspecified organism Qualified Code(s): A41.9 - Sepsis, unspecified organism (4) Diabetes Qualifiers: Diabetes mellitus type: type 2 Diabetes mellitus remote computer terminal operator insulin use: without remote computer terminal operator use Diabetes mellitus complication status: with unspecified complications Qualified Code(s): E11.8 - Type 2 diabetes mellitus with unspecified complications
[2017-11-28] MEDS: Insulin DETEMIR 100 UNIT/ML X5UNITS SQ SCH (21:37)
[2017-11-29 03:38] LABS: Basophils % 0.4 %; Eosinophils # 0.4 K/mcL (0.0-0.6); Eosinophils % 3.1 %; Hematocrit 34.9 % (35.3-44.9); Hemoglobin 11.6 g/dL (11.5-15.4); Immature Granulocytes % 1.7 % (0-4); Lymphocytes # 1.8 K/mcL (0.6-4.6); Lymphocytes % 15.6 %; Mean Corpuscular HGB Conc 33.2 g/dL (31.6-35.5); Mean Corpuscular Hemoglobin 27.6 pg (28.0-33.3); Mean Corpuscular Volume 83.1 fL (83.0-100.0); Mean Platelet Volume 11.4 fL (9.4-12.4); Monocytes # 0.6 K/mcL (0.0-1.3); Monocytes % 5.2 %; Neutrophils # 8.4 K/mcL (1.6-8.9); Platelet Count 200 K/mcL (140-400); Red Cell Distribution Width 13.8 % (11.5-14.5)
[2017-11-29 03:55] LABS: BUN/Creatinine Ratio 24 (6-26); Blood Urea Nitrogen 13 mg/dL (6-20); Calcium 8.9 mg/dL (8.6-10.3); Carbon Dioxide 17 mEq/L (23-29); Chloride 106 mEq/L (98-107); Glucose 155 mg/dL (70-105); Osmolality,Calculated 283 (280-300); Potassium 4.3 mEq/L (3.5-5.1); Sodium 135 mEq/L (136-145); eGFR For Non-African Americans > 60 (> 60)
[2017-11-29] MEDS: Levofloxacin 750 MG/150 ML 750 MG/150 ML BAG IVPB SCH (08:15)
[2017-11-29] MEDS: Topiramate 25 MG TABLET PO SCH (08:15)
[2017-11-29] MEDS: *HR* Heparin 5,000 UNIT/ML VIAL SQ SCH (08:16)
[2017-11-29] MEDS: Insulin LISPRO 300 UNITS/3 ML VIAL SQ SCH ×2 (08:16→12:10)
[2017-11-29 11:14] VITALS: BP 114/80
--- NOTE | 2017-11-29 11:32 | Discharge Summary ---
<Jie Hassan - Last Filed: 11/29/17 12:59> Date of Encounter: 11/29/17 - Discharge Diagnosis (1) HCAP (healthcare-associated pneumonia) Status: Acute (2) Electrolyte and fluid disorder Status: Acute (3) Sepsis Status: Resolved Qualifiers: Sepsis type: sepsis due to unspecified organism Qualified Code(s): A41.9 - Sepsis, unspecified organism (4) Diabetes Status: Chronic Qualifiers: Diabetes mellitus type: type 2 Diabetes mellitus fpc insulin use: without terminal block assembler use Diabetes mellitus complication status: with unspecified complications Qualified Code(s): E11.8 - Type 2 diabetes mellitus with unspecified complications (5) DVT prophylaxis Status: Acute Hospital course: Ms. Dorsey is a 52 year old female - Time Spent with Patient Total time spent providing and/or coordinating discharge services: - Discharge Medications Prescriptions: levoFLOXacin [Levaquin] 750 mg PO DAILY #6 tablet Home Medications: Exenatide Microspheres [Bydureon Pen] 2 mg SQ MO 08/22/17 [History] Lisinopril [Zestril] 5 mg PO DAILY 08/22/17 [History] Metformin HCl [Glucophage] 1,000 mg PO BID 08/22/17 [History] Oxybutynin Chloride [Ditropan Xl] 10 mg PO DAILY 08/22/17 [History] Topiramate 50 mg PO BID 08/22/17 [History] levoFLOXacin [Levaquin] 750 mg PO DAILY #6 tablet 11/29/17 [Rx] Allergies/Adverse Reactions: 3 Allergy/AdvReac Type Severity Reaction Status Date / Time acetaminophen AdvReac Gastrointestinal Verified 11/26/17 20:44 [From Tylenol-Codeine] Upset codeine AdvReac Gastrointestinal Verified 11/26/17 20:44 [From Tylenol-Codeine] Upset Penicillins AdvReac Gastrointestinal Verified 11/26/17 20:44 Upset Date of admission: 11/26/17 20:51 Primary care physician: Angelia Crawford CNP - Constitutional Vitals: Temp Pulse Resp BP Pulse Ox 97.7 F 95 16 114/80 95 11/29/17 11:07 11/29/17 11:07 11/29/17 11:07 11/29/17 11:07 11/29/17 11:07 - Patient Status Disposition: Home, Self-Care Condition: Good - Discharge Instructions Follow Up With: Angelia Crawford CNP [Primary Care Provider] - 12/08/17 10:30 am Additional Instructions: Please follow up with her primary care physician within one week and take all medications as prescribed until completion. - Attending Attestation I examined this patient and my medical decision-making was reviewed with the Resident Physician Dr Raymond. I agree with the documented findings, disposition and treatment plan as described except to the extent set forth below /addl details s below Ms Dorsey was admitted with sepsis 2/2 legionella pneumonia. Awake, family at bedside. feeling greatly improved. + cough but overall less frequent, denies any sob, wheezing, dyspnea on exertion. No fevers or chills. gen- alert, awake,appears stated age cv- reg rate and rhythm, normal s1,s2, no murmurs appreciated lungs- ctabl, no wheezing, rhonchi or crackles, normal resp effort on room air neuro- AAOx3 Sepsis 2/2 pna, resolved Legionella pna- cont levaquin upon dc, bl cxs ngtd, fu with pcp in a week Hyponatremia likely 2/2 legionella , Sodium level increased to 135 Hypokalemia- resolved DC to home in stable condition with outpt fu with PCP <J Carlos Raymond - Last Filed: 11/29/17 18:21> - NOTES TO OUTPATIENT PROVIDER Notes to Outpatient Provider: Please follow up with her primary care provider within 5 days and be sure to take all medications as prescribed including her antibiotic until completion. Return to the emergency room with any worsening of symptoms including fevers, chills, nausea, vomiting, worsening of breathing or cough. Ms. Dorsey was admitted for sepsis secondary to pneumonia which was positive for Legionella. She was treated with Levaquin and sent home with a prescription for a total of 10 days. Date of Encounter: 11/29/17 Time of Encounter: 11:30 - Discharge Diagnosis (1) HCAP (healthcare-associated pneumonia) Priority: Primary Status: Acute (2) Electrolyte and fluid disorder Priority: Secondary Status: Acute (3) Sepsis Priority: Secondary Status: Resolved Qualifiers: Sepsis type: sepsis due to unspecified organism Qualified Code(s): A41.9 - Sepsis, unspecified organism (4) Diabetes Priority: Secondary Status: Chronic Assessment and Plan: Will place on insulin sliding scale for now. Qualifiers: Diabetes mellitus type: type 2 Diabetes mellitus terminal block assembler insulin use: without terminal block assembler use Diabetes mellitus complication status: with unspecified complications Qualified Code(s): E11.8 - Type 2 diabetes mellitus with unspecified complications (5) DVT prophylaxis Priority: Secondary Status: Acute Hospital course: Ms. Dorsey is a 52 year old female with past medical history of diabetes, hypertension who presents to emergency department with complaint of fevers. She was recently admitted to 3 weeks ago where she underwent laparoscopic cholecystectomy without complications. On presentation to this hospital she has a complaint of subjective fevers, nonproductive cough which began 3 days ago. Associated symptoms of nausea without vomiting and denies any sick contacts or recent travel. On presentation to the emergency room, patient was noted to have elevated temperature of 99.9, pulse 104, tolerating 97 % oxygen on room air. Chest x-ray was obtained which shows extensive perihilar airspace opacification consistent with pneumonia. Abdominal CT was obtained which showed no acute intra-abdominal process. Laboratory results were significant for a WBC of 14.7, sodium 130, potassium 2.9, glucose 287, magnesium 1.4, normal lactate, urinalysis was contaminated and concentrated but no evidence of infection. She did have a positive Legionella antigen on urine collection. She was admitted to the hospital for further management sepsis secondary to Legionella pneumonia. During course possible stay, patient did gradually improve. She was originally started on vancomycin and Levaquin and was De-escalated to Levaquin when her Legionella antigen returned positive. Her potassium and magnesium were replaced and her sodium did improve with treatment of Legionella pneumonia. She did have a MAXIMUM TEMPERATURE of 100.6 but has been afebrile for the previous 48 hours and her vital signs have returned within normal limits. She did receive fluids per sepsis protocol. On day of discharge, patient stated her symptoms have greatly improved with only a minor cough remaining. She is expressing no shortness of breath. She will be discharged home in stable medical condition with a prescription for Levaquin for a total of 10 days of treatment. She was instructed to follow with her primary care physician within one week and to take all her medications as prescribed until completion. She should return to emergency department with any worsening of symptoms including fevers, chills, chest pain, shortness of breath, nausea, vomiting. - Time Spent with Patient Total time spent providing and/or coordinating discharge services: Date of admission: 11/26/17 20:51 Primary care physician: Angelia Crawford CNP Discharging clinician: J Carlos Raymond Anticipated date of discharge: 11/29/17 - Constitutional Vitals: Temp Pulse Resp BP Pulse Ox 97.7 F 95 16 114/80 95 11/29/17 11:07 11/29/17 11:07 11/29/17 11:07 11/29/17 11:07 11/29/17 11:07 Exam: Gen.: Vitals noted. No acute distress. AAOx3 HEENT: PERRL/EOMI, oropharynx clear, Normocephalic, atraumatic, MMM Cardiac: RRR, no murmur, +S1/S2 Pulmonary: CTA bilaterally, no wheezes, rales or rhonchi, equal chest expansion. Greatly improved from previous Abdomen: soft, nontender, BS noted, no guarding, no rebound. MSK: ROM intact, no joint swelling noted Extremities: no BLE edema, nontender calf, no cyanosis or clubbing Neuro: A&Ox3, moves all extremities, no focal deficits Psych: Appropriate mood and behavior - Patient Status Functional capacity at discharge: independent ambulation Overall status at discharge: patient is progressing back to baseline - Diet and Activity Activity: increase activity as tolerated, return to work once cleared by your PCP/specialist, resume usual activities as tolerated Diet: advance to your usual diet
== END 2017-11-29 13:18 | disposition home or self-care (01) | DRG 720 ==
LOC: EMEROOARM 15:58 → 3ANU 15:58 → OBSVTOIN 20:51 → SUATTDRO 20:51 → 3ANU 21:13
PROVIDERS: ADMIT Internal Medicine; ATTEND Internal Medicine

== ENCOUNTER 2020-12-27 13:57 | Observation (INO) ==
[2020-12-27 14:40] LABS: Basophils % 0.2 %; Eosinophils % 0.2 %; Hematocrit 40.5 % (35.3-44.9); Immature Granulocytes % 0.3 % (0-4); Lymphocytes % 8.5 %; Mean Corpuscular HGB Conc 33.3 g/dL (31.6-35.5); Mean Corpuscular Hemoglobin 27.5 pg (28.0-33.3); Mean Corpuscular Volume 82.5 fL (83.0-100.0); Mean Platelet Volume 10.1 fL (9.4-12.4); Monocytes # 0.5 K/mcL (0.0-1.3); Monocytes % 3.9 %; Platelet Count 183 K/mcL (140-400); Red Blood Count 4.91 M/mcL (3.82-4.97); Red Cell Distribution Width 12.4 % (11.5-14.5); Segmented Neutrophils % 86.9 %; White Blood Count 11.5 K/mcL (4.3-11.1)
[2020-12-27 14:41] LABS: Hemoglobin 13.5 g/dL (11.5-15.4)
[2020-12-27 14:49] LABS: VBG HCO3 19 mEq/L (21-27); VBG PCO2 30 mmHg (41-51); VBG PO2 82 mmHg (25-50)
[2020-12-27 15:00] LABS: Alanine Aminotransferase 20 Units/L (7-52); Albumin 3.2 g/dL (3.5-5.7); Albumin/Globulin Ratio 0.8 (1.1-2.2); Alkaline Phosphatase 56 Units/L (34-104); Aspartate Amino Transferase 18 Units/L (13-39); BUN/Creatinine Ratio 29 (6-26); Bilirubin,Total 0.5 mg/dL (0.3-1.0); Blood Urea Nitrogen 19 mg/dL (6-20); Calcium 8.5 mg/dL (8.6-10.3); Carbon Dioxide 18 mEq/L (23-29); Chloride 95 mEq/L (98-107); Globulin 4.2 g/dL (2.4-3.5); Glucose 417 mg/dL (70-105); Osmolality,Calculated 288 (280-300); Potassium 3.1 mEq/L (3.5-5.1); Sodium 129 mEq/L (136-145); Total Protein 7.4 g/dL (6.4-8.9); eGFR For African Americans > 60 (> 60); eGFR For Non-African Americans > 60 (> 60)
[2020-12-27] MEDS ORDERED: *HR* Metoprolol 5 MG/5 ML VIAL IVP ONE ×2 (15:32→17:46)
[2020-12-27] MEDS ORDERED: Acetaminophen 325 MG TABLET PO ONE (15:35)
[2020-12-27] MEDS: 0.9 % Sodium Chloride 1,000 ML IVC SCH ×2 (15:37→18:23)
[2020-12-27] MEDS ORDERED: cefTRIAXone 1,000 MG in 0.9 % Sodium Chloride Mini Bag 100 ML IVPB ONE (15:39)
[2020-12-27] MEDS ORDERED: Insulin Human Regular 5 UNIT in 0.9 % Sodium Chloride 10 ML IV ONE (15:44)
[2020-12-27] MEDS ORDERED: Dextrose Gel 15 GM/37.5 ML TUBE PO PRN ×2 (18:05)
[2020-12-27] MEDS ORDERED: D5% in Water 1,000 ML IVC PRN (18:05)
[2020-12-27] MEDS ORDERED: *HR* Dextrose 50 % in Water (Syg) 50 ML SYRINGE IVP PRN (18:05)
[2020-12-27] MEDS ORDERED: Ondansetron 4 MG/2 ML VIAL IVP PRN (18:07)
[2020-12-27] MEDS ORDERED: Melatonin 3 MG TABLET PO PRN (18:07)
[2020-12-27] MEDS ORDERED: Acetaminophen 325 MG TABLET PO PRN (18:07)
[2020-12-27] MEDS ORDERED: *HR* Glimepiride 4 MG TABLET PO SCH (18:15)
[2020-12-27] MEDS ORDERED: Insulin LISPRO 300 UNITS/3 ML VIAL SUBQ SCH ×2 (18:15→21:00)
[2020-12-27 18:32] LABS: Magnesium 1.8 mg/dL (1.6-2.6)
[2020-12-27 19:24] LABS: Estimated Average Glucose 369 mg/dl; Hemoglobin A1C 14.5 %
[2020-12-27] MEDS: *HR* Metformin 500 MG TABLET PO SCH (20:32)
[2020-12-27] MEDS: *HR* SitaGLIPtin 100 MG TABLET PO SCH (20:34)
[2020-12-27] MEDS ORDERED: *HR* Rivaroxaban 10 MG TABLET PO SCH (21:00)
[2020-12-28 06:01] LABS: Hemoglobin 12.3 g/dL (11.5-15.4); Mean Corpuscular HGB Conc 33.2 g/dL (31.6-35.5); Mean Corpuscular Hemoglobin 27.5 pg (28.0-33.3); Mean Corpuscular Volume 82.8 fL (83.0-100.0); Platelet Count 189 K/mcL (140-400); Red Blood Count 4.47 M/mcL (3.82-4.97); Red Cell Distribution Width 12.5 % (11.5-14.5); White Blood Count 8.6 K/mcL (4.3-11.1)
[2020-12-28 06:24] LABS: BUN/Creatinine Ratio 27 (6-26); Blood Urea Nitrogen 15 mg/dL (6-20); Calcium 7.9 mg/dL (8.6-10.3); Carbon Dioxide 22 mEq/L (23-29); Chloride 104 mEq/L (98-107); Chol/HDL Ratio 6.1 (0-4.9); Cholesterol 116 mg/dL (< 200); Glucose 115 mg/dL (70-105); HDL Cholesterol 19 mg/dL (40-59); LDL Cholesterol,Calculated 76 mg/dL (< 100); Magnesium 1.6 mg/dL (1.6-2.6); Osmolality,Calculated 284 (280-300); Phosphorous 2.3 mg/dL (2.7-4.5); Potassium 2.8 mEq/L (3.5-5.1); Sodium 136 mEq/L (136-145); Triglycerides 103 mg/dL (< 150); Troponin I < 0.03 ng/mL (< 0.04); eGFR For African Americans > 60 (> 60); eGFR For Non-African Americans > 60 (> 60)
[2020-12-28] MEDS ORDERED: *HR* Glimepiride 2 MG TABLET PO SCH ×2 (08:00)
[2020-12-28] MEDS ORDERED: lisinopriL 10 MG TABLET PO SCH (09:00)
[2020-12-28] MEDS: *HR* SitaGLIPtin 100 MG TABLET PO SCH (09:14)
[2020-12-28] MEDS: *HR* Metformin 500 MG TABLET PO SCH (09:14)
[2020-12-28 12:26] VITALS: BP 103/73; PULSE 104; TEMP 97.8; O2SAT 95
== END 2020-12-28 16:41 | disposition home or self-care (01) ==
LOC: 3NENU 13:57 → EMEROOARM 13:57 → SUATTDRO 18:56 → 3NENU 20:40
PROVIDERS: ADMIT Internal Medicine; ATTEND Internal Medicine